=== PATIENT | male | born 1970 | race Caucasian/White ===

== ENCOUNTER 2021-06-01 09:16 | Day surgery (SDC) | payer BC ==
[2021-05-31 12:49] LABS: BASOPHILS % (AUTO) 0.4 % (0-1); EOSINOPHILS % (AUTO) 0.7 % (0-6); LYMPHOCYTES # (AUTO) 1.6 X10'3 (1.1-4.8); LYMPHOCYTES % (AUTO) 28.2 % (21-51); MEAN CORPUSCULAR HEMOGLOBIN 31.4 PG (27.0-31.0); MEAN CORPUSCULAR HGB CONC 33.8 g/dL (33.0-36.5); MEAN PLATELET VOLUME 7.3 FL (7.4-10.4); MONOCYTES # (AUTO) 0.5 X10'3 (0-0.9); MONOCYTES % (AUTO) 8.1 % (2-12); NEUTROPHILS # (AUTO) 3.6 X10'3 (1.8-7.7); NEUTROPHILS % (AUTO) 62.6 % (42-75); PRE OP HEMATOCRIT 44.1 % (42.0-52.0); PRE OP HEMOGLOBIN 14.9 g/dL (14.0-17.9); PRE OP PLATELET COUNT 267 X10'3 (140-440); RED BLOOD COUNT 4.74 X10'6 (4.70-6.10); RED CELL DISTRIBUTION WIDTH 13.3 % (11.5-14.5)
[2021-05-31 13:04] LABS: ALBUMIN 4.3 G/DL (3.4-5.0); ALKALINE PHOSPHATASE 66 IU/L (46-116); BLOOD UREA NITROGEN 8 MG/DL (7-18); BUN/CREATININE RATIO 7.1 (5.4-32.0); CALCIUM 9.1 MG/DL (8.5-10.1); CHLORIDE 103 MMOL/L (99-107); CREATININE 1.12 MG/DL (0.60-1.10); PRE OP ALT 46 U/L (30-65); PRE OP ANION GAP 7 (8-16); PRE OP AST 38 U/L (10-37); PRE OP BILIRUB, TOTAL 0.5 MG/DL (0.0-1.0); PRE OP GLUCOSE 102 MG/DL (70-104); PRE OP POTASSIUM 4.1 MMOL/L (3.4-5.1); PRE OP SODIUM 142 MMOL/L (135-145); TOTAL CARBON DIOXIDE 32.3 MMOL/L (24-32); TOTAL PROTEIN 8.6 G/DL (6.4-8.2); eGFR 69 ML/MIN
[2021-06-01] VITALS (8 sets, daily range): BP systolic 131–164; BP diastolic 76–102
[~2021-06-01] VITALS: Ht 185.4 cm; Wt 105.0 kg
[~2021-06-01 09:16] MED LIST: ASCO-100 PO; BUPIVAcaine 0.5% inj/PF 30 ML ONE; CELE-85 PO; IMPLANTED PAIN PUMP; INDOCYANINE GREEN 25 MG/10 ML VIAL IV ONE; LIDOcaine 1% 30ml preserv. free vial ONE; MULT-1085 PO; THYR60TA2 PO; cefazolin/dext.iso 2gm/50ml IV ONE; famotidine 20mg tablet PO ONE; ringers solution, lacted 1,000 ML IV SCH
[2021-06-01] MEDS ORDERED: BUPIVAcaine 0.5% inj/PF 30 ml vial IJ ONE (10:42)
[2021-06-01] MEDS ORDERED: fentaNYL/PF 50MCG/1 ML 2ML syringe ONE ×2 (11:50→12:18)
[2021-06-01] MEDS ORDERED: midazolam 1 mg/ML 2ml injection ONE (11:50)
[2021-06-01] MEDS ORDERED: rocuronium 10mg/ml inj IV ONE (12:18)
[2021-06-01] MEDS ORDERED: propofol inj 20 ML IV ONE (12:18)
[2021-06-01] MEDS ORDERED: dexamethasone sod phosphate 4mg/ml inj. ONE (12:20)
[2021-06-01] MEDS ORDERED: LIDOcaine 2% (20mg/ml) 5ml vial ONE (12:20)
[2021-06-01] MEDS ORDERED: ondansetron/PF 4mg/2ml inj ONE (12:20)
[2021-06-01] MEDS ORDERED: acetaminophen 1,000mg/100ml IV 100 ML IV ONE (12:39)
[2021-06-01] MEDS ORDERED: labetalol 20mg/4ml (5mg/ml) syringe IV ONE (12:53)
[2021-06-01] MEDS ORDERED: oxyCODONE/APAP 5-325mg tablet PO PRN ×2 (12:55)
--- NOTE | 2021-06-01 13:05 | NUR ---
Received from OR via [facility], accompanied by Anesthesiologist and report given by Anesthesiologist. PATIENT WAKING UP, NO S/S OF PAIN, V/S WNL, SCD ON, 20G TO RUE, LAP SURGICAL SITES TO ABDOMEN CDI
[2021-06-01] MEDS ORDERED: meperidine/PF 25mg/ml syringe IV PRN (13:35)
--- NOTE | 2021-06-01 13:55 | NUR ---
PATIENT A&OX4, STATES PAIN UNDER CONTROL NOW, V/S WNL, SCD OFF, 20G TO RUE D/C, LAP SURGICAL SITES TO ABDOMEN CDI. I HAVE REVIEWED D/C INSTRUCTIONS WITH PATIENT AND HE HAS VERBALIZED UNDERSTANDING. PATIENT D/C HOME WITH ALL BELONGINGS AND GAVE TRANSPORT HOME.
== END 2021-06-01 13:55 | disposition home or self-care (01) ==
LOC: OR 09:16 → MERGE 11:15 → OR 13:55
PROVIDERS: ATTEND Surgery
DX: K81.1 Chronic cholecystitis (principal); E03.9 Hypothyroidism, unspecified; G89.29 Other chronic pain; G47.30 Sleep apnea, unspecified; G62.9 Polyneuropathy, unspecified; E66.9 Obesity, unspecified; Z68.30 Body mass index [BMI] 30.0-30.9, adult; Z98.890 Other specified postprocedural states; Z79.899 Other long term (current) drug therapy; Z20.822 Contact with and (suspected) exposure to COVID-19; Z72.89 Other problems related to lifestyle
CPT/HCPCS: 36415; 47563; 80053; 82948; 85025; 87635; 93005; C9803; J0131; J1100; J2001; J2175; J2250; J2405; J2704; J3010; J7120; S2900; Z7506; Z7508; Z7512; A4215; A4618; A7000; J3490